=== PATIENT | male | born 1940 | race Caucasian/White ===

== ENCOUNTER → 2024-03-17 12:10 | Outpatient (REF) | payer MEDICARE, SELFPAY | LOC: RAD 12:10 | PROVIDERS: ATTENDING PHYSICIAN Nurse Practitioner Family | DX: M25.561 Pain in right knee (principal) | CPT/HCPCS: 73564 ==

== ENCOUNTER 2024-04-23 06:45 | Day surgery (SDC) | payer MEDICARE, SELFPAY ==
--- NOTE | 2024-03-24 12:46 | CM ---
Patient is scheduled for an elective R TKR on 04/23/24. Spoke with patient prior to surgery via telephone. Introduced role of Orthopedic Navigator. Patient reports that he lives with his in a two story home. There is one step to enter and
patient has a first floor set up. He currently functions independently. He has a cane and a crutch. He has never had VN services. PCP is Juanita Robles.
Discussed orthopedic program and post surgical plans. Reviewed anticipated length of stay and that goal is for him to return home at discharge. Also reviewed outpatient PT. Patient is in agreement with tentative plan and will go directly to
outpatient PT at [facility]. He will have support from his when he goes home.
Patient will complete online education.
Plan: Orthopedic Navigator will remain available to assist with the care of patient and will reassess discharge needs after surgery.
[2024-04-06 13:25] VITALS: BMI 29.6
[2024-04-06 13:51] LABS: Hematocrit 41.1 % (39.0-52.0); Mean Corp Hgb Conc. 34.1 g/dL (33.0-37.0); Mean Corpuscular Hgb 32.4 pg (27.0-31.0); Mean Corpuscular Volume 95.1 fL (80.0-94.0); Mean Platelet Volume 9.7 fL (7.4-10.4); Platelet Count 213 10^3/uL (130-400); Red Blood Cell Count 4.32 10^6/uL (4.70-6.10); Red Cell Dist. Width 13.7 % (11.5-14.5); White Blood Cell Count 14.3 10^3/uL (4.8-10.8)
[2024-04-06 14:27] LABS: ALT (SGPT) 11 U/L (0-50); AST (SGOT) 20 U/L (17-59); Albumin 4.1 g/dl (3.5-5.0); Alkaline Phosphatase 60 U/L (38-126); Blood Urea Nitrogen 18 mg/dl (9-20); Calcium 9.7 mg/dl (8.4-10.2); Carbon Dioxide 27 mmol/L (22-30); Chloride 106 mmol/L (98-107); Estimated Creatinine Clearance 58 ml/min; Glucose 96 mg/dl (70-99); Potassium 4.8 mmol/L (3.5-5.1); Sodium 140 mmol/L (135-145); Total Bilirubin 1.2 mg/dl (0.2-1.3); Total Protein 6.7 g/dl (6.3-8.2); eGFR > 60.00
[2024-04-06 15:22] VITALS: BMI 29.6
[2024-04-23] VITALS (13 sets, daily range): BP systolic 101–158; BP diastolic 64–98; PULSE 104; O2SAT 97; BMI 29.6
[2024-04-23] MEDS: CELEBREX 200 MG PO (09:47)
[2024-04-23] MEDS: NORMOSOL-R 1000 IV ×2 (09:48→14:55)
[2024-04-23] MEDS: TYLENOL 650 MG PO ×3 (09:48→19:38)
[2024-04-23] MEDS: BACTROBAN NASAL 1 GRAM NASAL (09:49)
[2024-04-23 10:00] LABS: INR 1.37; PT 16.9 Sec (11.4-14.6)
[2024-04-23] MEDS: FLOMAX 0.400000000000000022 MG PO (12:27)
--- NOTE | 2024-04-23 14:56 | W.PN.UPDATE ---
Update Note
Progress Note Update
Patient in PACU. Stable. Pulm: nonlabored. CV: regular. RLE: Dressing CDI. NVI distally. Calf soft. Able to fully extend. Postop xrays as expected. Anticoagulation as planned. Plan for discharge home tomorrow with outpatient PT on Saturday.
--- NOTE | 2024-04-23 16:43 | PTCARENOTE ---
Patient admitted from Pacu post right total knee replacement.The patient is having pain in his right calf that he is rating at a 5-6 out of 10.Vital signs are stable.Neurovascular assessment is within normal limits and ongoing.The Aquacell dressing
is intact with a scant amount of drainage.The patient is in his bed with the call badillo in reach.Therapy is on the wayin to see him.
[2024-04-23 17:18] LABS: INR 1.28
[2024-04-23] MEDS: LOVENOX 40 MG SC (17:36)
[2024-04-23] MEDS: NEURONTIN 200 MG PO ×2 (17:36→21:14)
[2024-04-23] MEDS: THIAMINE INJECTION 200 MG IV (17:37)
[2024-04-23] MEDS: ANCEF 5 IV (19:38)
[2024-04-23] MEDS: BACTROBAN 2% OINTMENT 1 APPLIC NASAL (19:38)
[2024-04-23] MEDS: DECADRON 4 MG PO (19:39)
[2024-04-23] MEDS: SENOKOT 17.1999999999999993 MG PO (19:39)
[2024-04-23] MEDS: COLACE 100 MG PO (19:39)
[2024-04-23] MEDS: SERAX 10 MG PO (19:39)
[2024-04-23] MEDS: PROTONIX 40 MG PO (19:39)
[2024-04-23] MEDS: LOPRESSOR 25 MG PO (21:14)
[2024-04-23] MEDS: COUMADIN 5 MG PO (21:15)
[2024-04-23] MEDS: TYLENOL PO (23:02)
[2024-04-24] MEDS: ANCEF 5 IV (01:37)
[2024-04-24] MEDS: TYLENOL PO ×2 (03:11→12:31)
[2024-04-24 04:02] VITALS: BP 118/69
[2024-04-24 06:32] LABS: PT 16.3 Sec (11.4-14.6)
[2024-04-24 07:02] VITALS: BP 149/79
--- NOTE | 2024-04-24 07:20 | W.PN.ORTHO ---
Today's Communication / Plan
-
Plan for discharge home with ouptatient PT on Saturday
Assessment
.
Distal Motor Intact: Yes
Dressing:
Clean, dry and intact.
Assessment:
Doing well s/p R TKR
Plan
.
Surgery / Date: 04/23/2024
DVT Prophylaxis: Coumadin and Lovenox
Activity:
Out of bed.
PT/OT
Discharge Plan: Home w/ Outpatient PT
Subjective
.
.:
Patient resting comfortably. OOB this AM
Vital Signs and Labs
.
Vital Signs and Labs:
Lab Results
04/06/24 13:16
04/06/24 13:16
Temp Pulse Resp BP Pulse Ox
97.3 F 72 16 118/69 94
04/24/24 04:02 04/24/24 04:02 04/24/24 04:02 04/24/24 04:02 04/24/24 04:02
PT 16.3 Sec (11.4-14.6) H 04/24/24 05:39
INR 1.30 04/24/24 05:39
Non-invasive Hgb result: 13.9
Physical Exam
-
Pulm: nonlabored
RLE: NVI distally. Calf soft. Able to flex to 90 degrees and close to full extension
[2024-04-24] MEDS: DECADRON 4 MG PO (08:18)
[2024-04-24] MEDS: COLACE 100 MG PO (08:18)
[2024-04-24] MEDS: BACTROBAN 2% OINTMENT 1 APPLIC NASAL (08:18)
[2024-04-24] MEDS: LIPITOR 20 MG PO (08:19)
[2024-04-24] MEDS: NEURONTIN 200 MG PO (08:19)
[2024-04-24] MEDS: PROTONIX 40 MG PO (08:19)
[2024-04-24] MEDS: SENOKOT 17.1999999999999993 MG PO (08:19)
[2024-04-24] MEDS: SERAX 10 MG PO (08:19)
[2024-04-24] MEDS: TYLENOL 650 MG PO (08:20)
[2024-04-24] MEDS: THIAMINE INJECTION 200 MG IV (08:20)
[2024-04-24 09:05] VITALS: BP 132/81; PULSE 82; O2SAT 98
--- NOTE | 2024-04-24 10:25 | CM ---
Addendum entered by NEISHA Varela 04/24/24 12:34:
MEt with patient and in room to update on plan for home care. ALso called and left VM at [facility] to explain no outpatient PT next week.
Original Note:
Reviewed chart and held rounds with PT, OT and nursing. Patient admitted as planned for elective R TKR. Met with patient at bedside. Confirmed information previously obtained for assessment. Also discussed discharge plans. The plan is for patient to
return home at discharge. His will be with him. After Ortho PA, PT and OT saw patient ortho PA requesting home care. Patient to go home on Lovenox to coumadin bridge.
Spoke to to discuss options for VNA while patient getting PT. Options list provided and PAC data reviewed. [facility]lects [facility].
Reviewed VN services including start of care (tentatively 04/25), services to be ordered (PT, SN) and frequency/duration of services.
Patient has a rolling walker and a cane at home.
VN referral was completed and sent to [facility] through [facility] with request for start of care on 04/25. Confirmation received of their ability to accept case. betting clerks to fax discharge instructions to [facility] when complete.
Patient will use [facility] pharmacy for discharge prescriptions.
[2024-04-24 10:30] VITALS: BP 123/78; PULSE 68; O2SAT 98
--- NOTE | 2024-04-24 11:20 | W.PN.ORTHO ---
Today's Communication / Plan
-
d/c
Assessment
.
Distal Motor Intact: Yes
Dressing:
Clean, dry and intact.
Assessment:
History or recurrent DVT/PE/ hypercoagulable
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
Warfarin with 40mg SQ Lovenox bridge post-op only as
determined by Hematology. SCD advised.
Cognitive impairment with alcohol abuse. The patient will be
placed on fall precautions and may need home care versus skilled
facility postoperatively, depending on support at home. We will
utilize Gabapentin and Serax at low dosage with Thiamine all standing
order--no signs nor sx withdrawl.
Plan
.
Surgery / Date: R LITA Hare 04/23/2024
DVT Prophylaxis: Coumadin and Lovenox
Activity:
Out of bed.
PT/OT
Discharge Plan: Home w/ VN
Subjective
.
.:
Patient resting comfortably.
Vital Signs and Labs
.
Vital Signs and Labs:
Lab Results
04/06/24 13:16
04/06/24 13:16
Temp Pulse Resp BP Pulse Ox
96.9 F L 87 19 149/79 99
04/24/24 07:02 04/24/24 07:02 04/24/24 07:02 04/24/24 07:02 04/24/24 07:02
PT 16.3 Sec (11.4-14.6) H 04/24/24 05:39
INR 1.30 04/24/24 05:39
Non-invasive Hgb result: 13.9
Physical Exam
-
HEENT: No pallor, cyanosis, or jaundice. Throat clear.
NECK: Supple. No JVD.
RESPIRATORY: Lungs clear to auscultation.
CVS: S1, S2 normal. RRR.� No murmur, rub or gallop.
ABDOMEN: Soft, non-tender. No distension. BS+/normal.
EXTREMITIES: strength equal, no calf pain with palpation
ROUGH RIB GRADER: AOx3. No focal deficits. counter intelligence grossly intact
[2024-04-24 11:31] VITALS: BP 119/77
--- NOTE | 2024-04-24 11:39 | W.DS.TRANS ---
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
-
Discharge Instructions:
Sleep Apnea Risk Intermediate
Discharge Diagnosis/Procedures R TKA Dr. Hare 04/23/2024
Diet As tolerated
Activity With Walker
Additional Activity venous compression device when sittingor
sleeping
Driving Restrictions No driving
Bathing Restrictions OK to Shower
Blood Work INR Mondays and x 1 month-results to
Rose Garcia
Other Services VN,PT
Instructions:
Stand-Alone Forms: Total Hip/Knee Replacement D/C
Changes to Home Medications: Yes
Discharge Medications:
DC Medications w/original date entered in [email or web address]
amlodipine 10 mg-benazepril 20 mg capsule 1 tab PO DAILY 07/25/21
atorvastatin 10 mg tablet 20 mg PO Q48H 07/25/21
metoprolol tartrate 25 mg tablet 25 mg PO HS 09/19/21
mupirocin 2 % topical ointment 1 applic topical BID infection prevention #1 tube 04/06/24
tamsulosin 0.4 mg capsule 0.4 mg PO HS #7 caps 04/06/24
dexamethasone 4 mg tablet 4 mg PO BID inflammation #6 tabs 04/24/24
docusate sodium 100 mg capsule (Colace) 100 mg PO BID stool softner #1 cap 04/24/24
enoxaparin 40 mg/0.4 mL subcutaneous syringe (Lovenox) 40 mg (0.4 mL) SC HS Blood clot prevention/tx #10 mL 04/24/24
famotidine 20 mg tablet 20 mg PO HS GI prophylaxis #30 tabs 04/24/24
gabapentin 300 mg capsule 300 mg PO BID sleep/pain #20 caps 04/24/24
magnesium hydroxide 400 mg/5 mL oral suspension (Milk of Magnesia) 30 ml PO HS PRN Constipation #1 mL 04/24/24
oxycodone 5 mg tablet 5 mg PO Q6H PRN moderate-severe pain #30 tabs 04/24/24
sennosides 8.6 mg tablet (Senokot) 17.2 mg (2 x 8.6 mg) PO BID laxative #2 tabs 04/24/24
warfarin 4 mg tablet (Jantoven) 4 mg PO HS Blood clot prevention/tx/afibb #0 tabs 04/24/24
Home Medication Changes
tamsulosin 0.4 mg capsule 0.4 mg PO HS #7 caps 04/06/24
dexamethasone 4 mg tablet 4 mg PO BID inflammation #6 tabs 04/24/24
docusate sodium 100 mg capsule (Colace) 100 mg PO BID stool softner #1 cap 04/24/24
enoxaparin 40 mg/0.4 mL subcutaneous syringe (Lovenox) 40 mg (0.4 mL) SC HS Blood clot prevention/tx #10 mL 04/24/24
famotidine 20 mg tablet 20 mg PO HS GI prophylaxis #30 tabs 04/24/24
gabapentin 300 mg capsule 300 mg PO BID sleep/pain #20 caps 04/24/24
magnesium hydroxide 400 mg/5 mL oral suspension (Milk of Magnesia) 30 ml PO HS PRN Constipation #1 mL 04/24/24
oxycodone 5 mg tablet 5 mg PO Q6H PRN moderate-severe pain #30 tabs 04/24/24
sennosides 8.6 mg tablet (Senokot) 17.2 mg (2 x 8.6 mg) PO BID laxative #2 tabs 04/24/24
warfarin 4 mg tablet (Jantoven) 4 mg PO HS Blood clot prevention/tx/afibb #0 tabs 04/24/24
Pending Results: No
== END 2024-04-24 13:20 | disposition home health service (06) ==
LOC: SDS 06:45
PROVIDERS: ATTENDING PHYSICIAN Orthopaedic Surgery; FAMILY PHYSICIAN Nurse Practitioner Family; OTHER PHYSICIAN Nurse Practitioner; OTHER PHYSICIAN Physician Assistant Medical
DX: M17.11 Unilateral primary osteoarthritis, right knee (principal)
CPT/HCPCS: 27447; 36415; 73560; 80053; 83036; 85027; 85610; 87070; 93005; 97110; 97116; 97162; 97165; 97535; C1713; C1776